=== PATIENT | female | born 1975 | race Caucasian/White ===

== ENCOUNTER 2017-04-20 09:06 | Emergency (ER) | payer BC ==
[~2017-04-20] VITALS: Ht 157.4 cm; Wt 90.7 kg
--- NOTE | ~2017-04-20 | EKG ---
[place], [place] ELECTROCARDIOGRAM REPORT NAME: CHARISSA MILLER UNIT #: [id number] ROOM: DOCTOR: SATISH KELLY,LILIAN BIRTHDATE: [birth year] DOS: 04/20/2017 TIME: 9:10 a.m. IMPRESSION: 1. Sinus rhythm. 2. Baseline artifact. 3. Normal QT interval. 4. Poor R-wave progression. LILIAN COVARRUBIAS MD CM:EKGRPT:ELECTROCARDIOGRAM REPORT [id number] LILIAN COVARRUBIAS MD
[~2017-04-20 09:06] MED LIST: CELEXA20 MG PO; CIPRO500 MG PO; FLONASE 0.05% 121 EA NAS; HYDROCODONE BIT1 T11 PO; Motrin,Rufen800 MG PO; PERCOCET 325 MG1 TA5 PO; PREDNISONE20 MG PO; ZITHROMAX Z PA250 MG PO; ZOFRAN ODT4 MG SL; ZYRTEC10 M1 PO
[2017-04-20] MEDS ORDERED: LISINOPRIL10 M1 PO (09:20)
[2017-04-20 10:08] LABS: ALKALINE PHOSPHATASE 79 U/L (45-117); BUN 16 mg/dl (7-24); CHLORIDE 110 mmol/L (98-107); CREATININE 0.97 mg/dL (0.55-1.02); POTASSIUM 5.1 mmol/L (3.5-5.1); SGOT/AST 28 IU/L (3-35); SGPT/ALT 29 U/L (12-78); SODIUM 139 mmol/L (136-145)
[2017-04-20 10:15] LABS: LIPASE 133 U/L (73-393)
[2017-04-20 10:20] LABS: BASO % 0.4 % (0.0-1.0); EOS # 0.3 10*3/uL (0.0-0.4); EOS % 2.8 % (1.0-4.0); HEMATOCRIT 37.2 % (37.0-47.0); HEMOGLOBIN 12.5 g/dl (12.0-16.0); LYMPH # 0.9 10*3/uL (1.3-4.4); LYMPH % 10.3 % (27.0-41.0); MEAN CELL VOLUME 94.2 fl (81.0-99.0); MEAN CORPUSCULAR HGB 31.6 pg (27.0-31.0); MEAN CORPUSCULAR HGB CONC 33.6 g/dl (33.0-37.0); MONO # 0.5 10*3/uL (0.1-1.0); MONO % 5.1 % (3.0-9.0); NEUT # 7.4 10*3/uL (2.3-7.9); PLATELET COUNT AUTOMATED 236 10*3/uL (130-400); RED BLOOD COUNT 3.95 10*6/uL (4.10-5.10); RED CELL DISTRI WIDTH 11.9 % (0-14.5); WHITE BLOOD COUNT 9.1 10*3/uL (4.8-10.8)
[2017-04-20 10:31] LABS: ACT PARTIAL THROMBO TIME 22.1 SECONDS (20.8-31.5)
[2017-04-20 10:45] LABS: BILIRUBIN NEGATIVE (NEGATIVE); BLOOD NEGATIVE (NEGATIVE); CLARITY SL CLOUDY (CLEAR); COLOR YELLOW (YELLOW); GLUCOSE NEGATIVE (NEGATIVE); KETONE NEGATIVE (NEGATIVE); LEUKO ESTERASE NEGATIVE (NEGATIVE); NITRITE NEGATIVE (NEGATIVE); UROBILINOGEN 0.2 E.U./dl (0.2-1.0)
[2017-04-20 10:55] LABS: BACTERIA 2+; EPITHELIAL CELLS 15-20; MUCOUS 2+
[2017-04-22] MEDS ORDERED: PRE NATAL VITAMIN (08:26)
[2017-04-24] MEDS ORDERED: NORCO 5-325 TA1 EACH PO (11:58)
== END 2017-04-20 11:56 | disposition home or self-care (01) ==
LOC: ED 09:06
PROVIDERS: Emergency Medicine
DX: K80.20 Calculus of gallbladder without cholecystitis without obstruction (principal); K80.50 Calculus of bile duct without cholangitis or cholecystitis without obstruction; R10.13 Epigastric pain; R10.11 Right upper quadrant pain; Z79.899 Other long term (current) drug therapy

== ENCOUNTER → 2017-04-24 | Day surgery (SDC) | payer BC ==
[~2017-04-24] VITALS: Ht 157.4 cm; Wt 90.7 kg
[2017-04-24] VITALS (7 sets, daily range): BP systolic 107–132; BP diastolic 65–85
[~2017-04-24] MED LIST changes: +LISINOPRIL10 M1 PO; +NORCO 5-325 TA1 EACH PO; +PRE NATAL VITAMIN
--- NOTE | ~2017-04-24 | O ---
[place], [place] OPERATIVE NOTE [id number] UNIT #: [id number] ROOM: DOCTOR: CARLOS ROLLINS MD BIRTHDATE: [birth year] DOS: 04/24/2017 PREOPERATIVE DIAGNOSIS: Symptomatic gallstones. POSTOPERATIVE DIAGNOSIS: Symptomatic gallstones. PROCEDURE: Laparoscopic cholecystectomy. SURGEON: Carlos Rollins MD MACHINE BUFFER: AZUCENA. ANESTHESIA: General with endotracheal intubation. INDICATIONS: This is a 41-year-old lady with a history of symptomatic gallstones, who is here for the above-mentioned procedure. The procedure and its complications were explained to the patient in detail preoperatively. Complications that were discussed included but were not limited to bleeding, infection, hematoma/seroma/abscess formation, prolonged postoperative pain, damage to underlying vital structures, inadvertent injury to the common bile duct, biloma formation and incisional hernia formation. She agreed to proceed. DESCRIPTION OF PROCEDURE: After identifying the patient, the patient was brought to the operating suite and laid in the supine position. After induction of general anesthesia, the parts were then painted and draped in the usual sterile fashion. Timeout procedure was called. An incision was made below the umbilicus. The skin and the subcutaneous tissue were incised in the line of the incision. The fascia was incised and 2 stay sutures were taken on either side with the help of 0 Vicryl. The peritoneum was opened and a 12 mm Anna port was introduced into the peritoneal cavity. Pneumoperitoneum was created. Under direct vision, an epigastric incision of 10 mm and two 5 mm incisions were made in the right upper quadrant and appropriate size ports were introduced. The gallbladder was retracted superiorly and laterally. The cystic duct and the cystic artery were meticulously dissected thereafter each of these structures were clipped 3 times and cut between the first and the second clip after the triangle of Calot was clearly identified and critical view of safety was obtained. Thereafter, the gallbladder was removed from the bed of the gallbladder with the help of electrocautery, it was placed in an EndoCatch bag and removed from the peritoneal cavity and sent for histopathological diagnosis. Hemostasis was confirmed in the liver bed. Thereafter, the right upper quadrant and the epigastric ports were removed and there was no bleeding seen. The umbilical port was also removed and the pneumoperitoneum was decompressed. Thereafter, the fascial defect in the umbilicus was approximated with the help of 0 Vicryl in a [id number]-aleyl fashion. The edges of the skin were infiltrated with 1% plain lidocaine and approximated with the help of 4-0 Vicryl in a subcuticular running fashion. Dressings were placed. The patient tolerated the procedure well. There were no complications. After uneventful extubation, she was brought back to the recovery room in stable fashion. Dr. Carlos Rollins, the attending surgeon, was present throughout the operating case. [place], [place] OPERATIVE NOTE NAME: ANGELACHARISSA A UNIT #: [id number] ROOM: DOCTOR: CARLOS ROLLINS MD BIRTHDATE: [birth year] Carlos Rollins MD CM:OPRECORD:OPERATIVE NOTE 1210 1224 CARLOS ROLLINS MD 04/24/17 1223 interface
== END ==
LOC: SDC 04-22 08:00
DX: K80.10 Calculus of gallbladder with chronic cholecystitis without obstruction (principal); I10 Essential (primary) hypertension; Z79.899 Other long term (current) drug therapy; Z87.442 Personal history of urinary calculi; Z98.890 Other specified postprocedural states; Z80.9 Family history of malignant neoplasm, unspecified; Z82.49 Family history of ischemic heart disease and other diseases of the circulatory system